=== PATIENT | female | born 1980 ===

== ENCOUNTER 2019-07-18 19:47 | Inpatient (IN) ==
[2019-07-18 20:33] LABS: Basophils % 0.2 % (0.0-0.8); Eosinophils # 0.1 10*3/uL (0.0-0.87); Eosinophils % 0.5 % (0.00-10.9); Hemoglobin 9.3 GM/DL (12.0-16.0); Immature Granulocytes % 0.5 %; Immature Granulocytes Absolute 0.06 #; Lymphocytes # 1.9 10*3/uL (1.4-4.0); Lymphocytes % 14.7 % (21.3-54.2); Mean Corpuscular HGB Conc 32.1 GM/DL (32-36); Mean Corpuscular Volume 88.7 FL (87-102); Mean Platelet Volume 9.7 FL (9.6-12.0); Monocytes % 6.7 % (1.7-12.7); Neutrophils % 77.4 % (38.7-73.9); Platelet Count 229 T/CUMM (130-400); Red Blood Count 3.27 MC/CUMM (3.8-5.5); Red Cell Distribution Width 18.7 % (9.3-17.3); White Blood Count 12.7 T/CUMM (4-12)
[2019-07-18 20:57] LABS: Albumin 2.2 G/DL (3.4-5.0); Bilirubin,Total 0.4 MG/DL (0.2-1.0); Calcium 7.9 MG/DL (8.5-10.1); Osmolality,Calculated 280.4 MOS/KG (273-304); Total Protein 6.5 G/DL (6.4-8.3)
[2019-07-18] MEDS: PIPERACILLIN/TAZOBACTAM 3,375 MG in SODIUM CHLORIDE 0.9% 100 ML IV SCH (22:39)
[2019-07-18] MEDS: DEXTROSE 5% NACL 0.45% 1,000 ML IV SCH (22:39)
[2019-07-18] MEDS: MORPHINE 4 MG/1 ML VIAL IV PRN (22:44)
[2019-07-18] MEDS: ONDANSETRON 4 MG/2 ML VIAL IV PRN (23:00)
[2019-07-19 05:44] LABS: Basophils % 0.2 % (0.0-0.8); Eosinophils # 0.1 10*3/uL (0.0-0.87); Eosinophils % 0.9 % (0.00-10.9); Hematocrit 26.1 VOL% (35.7-47.0); Hemoglobin 8.4 GM/DL (12.0-16.0); Immature Granulocytes % 0.3 %; Immature Granulocytes Absolute 0.03 #; Lymphocytes # 1.3 10*3/uL (1.4-4.0); Lymphocytes % 15.1 % (21.3-54.2); Mean Corpuscular HGB Conc 32.2 GM/DL (32-36); Mean Corpuscular Volume 88.2 FL (87-102); Mean Platelet Volume 10.4 FL (9.6-12.0); Monocytes % 7.6 % (1.7-12.7); Neutrophils % 75.9 % (38.7-73.9); Platelet Count 216 T/CUMM (130-400); Red Blood Count 2.96 MC/CUMM (3.8-5.5); Red Cell Distribution Width 18.7 % (9.3-17.3); White Blood Count 8.9 T/CUMM (4-12)
[2019-07-19] MEDS: DEXTROSE 5% NACL 0.45% 1,000 ML IV SCH ×3 (05:45→20:09)
[2019-07-19] MEDS: PIPERACILLIN/TAZOBACTAM 3,375 MG in SODIUM CHLORIDE 0.9% 100 ML IV SCH ×3 (05:47→22:23)
[2019-07-19 06:04] LABS: Calcium 7.6 MG/DL (8.5-10.1); Osmolality,Calculated 294.3 MOS/KG (273-304)
[2019-07-19] MEDS ORDERED: TISSUE ADHESIVE 1 EACH APPLICATOR TOP ONE (06:45)
[2019-07-19] MEDS ORDERED: BUPIVACAINE 0.5% 50 ML VIAL ONE (06:45)
[2019-07-19] MEDS ORDERED: LIDOCAINE 1%/EPI INJ 20 ML VIAL ONE (06:45)
[2019-07-19] MEDS: ONDANSETRON 4 MG/2 ML VIAL IV PRN (06:53)
[2019-07-19] MEDS: MORPHINE 4 MG/1 ML VIAL IV PRN ×2 (06:53→20:10)
[2019-07-19] MEDS: PANTOPRAZOLE 40 MG VIAL IV SCH (08:58)
[2019-07-19] MEDS ORDERED: OXYTOCIN/LR 20 UNIT/1,000 ML BAG IV ONE (09:40)
[2019-07-19] MEDS ORDERED: HYDROmorphone 2 MG/1 ML VIAL ONE (12:42)
[2019-07-19] MEDS ORDERED: SEVOFLURANE 1 UNIT/15 MINUTE INH ONE (12:44)
[2019-07-19] MEDS ORDERED: propofoL 200 MG/20 ML VIAL IV ONE (12:44)
[2019-07-19] MEDS ORDERED: LIDOCAINE 2% 5 ML VIAL ONE (12:44)
[2019-07-19] MEDS ORDERED: fentaNYL 100 MCG/2 ML VIAL ONE (12:44)
[2019-07-19] MEDS ORDERED: ONDANSETRON 4 MG/2 ML VIAL ONE (12:45)
[2019-07-19] MEDS: HYDROmorphone 2 MG/1 ML VIAL IV PRN ×4 (12:45→13:00)
[2019-07-19] MEDS ORDERED: KETOROLAC 30 MG/1 ML VIAL ONE (12:45)
[2019-07-19] MEDS ORDERED: PHENYLEPHRINE 1 MG/10 ML SYRINGE IV ONE (12:45)
[2019-07-19] MEDS ORDERED: NEOSTIGMINE 10 MG/10 ML VIAL ONE (12:45)
[2019-07-19] MEDS ORDERED: MIDAZOLAM 2 MG/2 ML VIAL ONE (12:45)
[2019-07-19] MEDS ORDERED: GLYCOPYRROLATE 0.4 MG/2 ML VIAL ONE (12:45)
[2019-07-19] MEDS ORDERED: LACTATED RINGERS 1,000 ML IV ONE (12:45)
[2019-07-19] MEDS ORDERED: ROCURONIUM 100 MG/10 ML VIAL IV ONE (12:45)
[2019-07-20] MEDS: MORPHINE 4 MG/1 ML VIAL IV PRN ×2 (00:29→06:12)
[2019-07-20] MEDS: PIPERACILLIN/TAZOBACTAM 3,375 MG in SODIUM CHLORIDE 0.9% 100 ML IV SCH ×3 (06:13→21:45)
[2019-07-20 08:00] LABS: Basophils % 0.2 % (0.0-0.8); Eosinophils # 0.1 10*3/uL (0.0-0.87); Eosinophils % 1.4 % (0.00-10.9); Hematocrit 24.3 VOL% (35.7-47.0); Hemoglobin 7.8 GM/DL (12.0-16.0); Immature Granulocytes % 0.4 %; Immature Granulocytes Absolute 0.02 #; Lymphocytes # 1.4 10*3/uL (1.4-4.0); Lymphocytes % 24.2 % (21.3-54.2); Mean Corpuscular HGB Conc 32.1 GM/DL (32-36); Mean Corpuscular Volume 88.7 FL (87-102); Mean Platelet Volume 9.9 FL (9.6-12.0); Monocytes % 10.3 % (1.7-12.7); Neutrophils % 63.5 % (38.7-73.9); Platelet Count 212 T/CUMM (130-400); Red Blood Count 2.74 MC/CUMM (3.8-5.5); Red Cell Distribution Width 18.3 % (9.3-17.3); White Blood Count 5.6 T/CUMM (4-12)
[2019-07-20] MEDS ORDERED: KETOROLAC 30 MG/1 ML VIAL IV ONE (08:16)
[2019-07-20 08:28] LABS: Calcium 7.6 MG/DL (8.5-10.1); Osmolality,Calculated 285.7 MOS/KG (273-304)
[2019-07-20] MEDS: POTASSIUM CHLORIDE 20 MEQ TABLET PO PRN ×3 (08:31→15:57)
[2019-07-20] MEDS: PANTOPRAZOLE 40 MG VIAL IV SCH (08:34)
[2019-07-20] MEDS: KETOROLAC 30 MG/1 ML VIAL IV SCH ×2 (13:54→19:57)
[2019-07-20] MEDS: DEXTROSE 5% NACL 0.45% 1,000 ML IV SCH ×3 (20:03→21:42)
[2019-07-21] MEDS: KETOROLAC 30 MG/1 ML VIAL IV SCH ×2 (00:13→06:04)
[2019-07-21] MEDS: ACETAMINOPHEN 325 MG TABLET PO PRN ×2 (03:55→08:38)
[2019-07-21] MEDS: PIPERACILLIN/TAZOBACTAM 3,375 MG in SODIUM CHLORIDE 0.9% 100 ML IV SCH (05:33)
[2019-07-21 05:55] LABS: Basophils % 0.2 % (0.0-0.8); Eosinophils # 0.1 10*3/uL (0.0-0.87); Eosinophils % 1.3 % (0.00-10.9); Hemoglobin 8.1 GM/DL (12.0-16.0); Immature Granulocytes % 0.7 %; Immature Granulocytes Absolute 0.03 #; Lymphocytes # 1.8 10*3/uL (1.4-4.0); Mean Corpuscular HGB Conc 32.4 GM/DL (32-36); Mean Corpuscular Volume 88.3 FL (87-102); Mean Platelet Volume 9.8 FL (9.6-12.0); Monocytes % 8.9 % (1.7-12.7); Neutrophils % 50.9 % (38.7-73.9); Platelet Count 250 T/CUMM (130-400); Red Blood Count 2.83 MC/CUMM (3.8-5.5); Red Cell Distribution Width 18.1 % (9.3-17.3); White Blood Count 4.6 T/CUMM (4-12)
[2019-07-21] MEDS: DEXTROSE 5% NACL 0.45% 1,000 ML IV SCH (06:04)
[2019-07-21 06:07] LABS: Calcium 8.1 MG/DL (8.5-10.1); Osmolality,Calculated 292.8 MOS/KG (273-304)
[2019-07-21 06:18] LABS: Hypochromasia 1+; Ovalocytes Slight; Platelet Estimate Adequate
[2019-07-21] MEDS: PANTOPRAZOLE 40 MG VIAL IV SCH (08:39)
[2019-07-21] MEDS ORDERED: INFLUENZA VIRUS VACCINE 0.5 ML SYRINGE IM ONE (10:51)
[2019-07-21 11:24] VITALS: BP 147/69
== END 2019-07-21 12:08 | disposition home or self-care (01) | DRG 544 ==
LOC: N.ED 19:47 → N.EDINP 20:22 → N.3E 20:53
PROVIDERS: ADMIT Surgery; ATTEND Surgery